=== PATIENT | female | born 1975 | race Caucasian/White ===

== ENCOUNTER 2016-03-24 00:15 | Emergency (ER) | payer OTHER ==
[2016-03-24 00:51] VITALS: BP 148/93
[2016-03-24 01:15] LABS: Basophils % (Auto) 0.3 % (0.0-1.8); Hematocrit 41.5 % (30.3-42.9); Hemoglobin 13.5 gm/dl (10.1-14.3); Mean Corpuscular HGB Conc 33 % (30-34); Mean Corpuscular Hemoglobin 28 pg (28-32); Mean Corpuscular Volume 85 fl (79-97); Platelet Count 179 K/mm3 (140-440); Red Blood Count 4.86 M/mm3 (3.65-5.03); Red Cell Distribution Width 13.8 % (13.2-15.2); White Blood Count 11.2 K/mm3 (4.5-11.0)
[2016-03-24 01:36] LABS: Anion Gap 21 mmol/L; BUN/Creatinine Ratio 16.25; Blood Urea Nitrogen 13 mg/dL (7-17); Calcium 8.7 mg/dL (8.4-10.2); Carbon Dioxide 22 mmol/L (22-30); Chloride 91.4 mmol/L (98-107); Glucose 132 mg/dL (65-100); Potassium 3.8 mmol/L (3.6-5.0); Sodium 131 mmol/L (137-145)
--- NOTE | 2016-03-25 19:09 | ED Elopement Review ---
ED Pt Elopement review - Results review Lab results: Laboratory Tests 03/24/16 03/24/16 01:05 01:05 WBC 11.2 H RBC 4.86 Hgb 13.5 Hct 41.5 MCV 85 MCH 28 MCHC 33 RDW 13.8 Plt Count 179 Lymph % (Auto) 9.2 L Fann[place] % (Auto) 4.3 Eos % (Auto) 1.0 Baso % (Auto) 0.3 Lymph # 1.0 L Fannin # 0.5 Eos # 0.1 Baso # 0.0 Seg Neutrophils % 85.2 H Seg Neutrophils # 9.5 H Sodium 131 L Potassium 3.8 Chloride 91.4 L Carbon Dioxide 22 Anion Gap 21 BUN 13 Creatinine 0.8 Estimated GFR > 60 BUN/Creatinine Ratio 16.25 Glucose 132 H Calcium 8.7 Troponin T < 0.010 - Call Back decision Pt Call Back Decision: Pt to F/U with PMD (for elevated heart rate and mild elevated fever she needs to follow up with her PCP)
== END 2016-03-24 01:06 | disposition left against medical advice (07) ==
LOC: ED 00:15
DX: R50.9 Fever, unspecified (principal); R51 Headache; M54.2 Cervicalgia; I10 Essential (primary) hypertension; Z53.21 Procedure and treatment not carried out due to patient leaving prior to being seen by health care provider
CPT/HCPCS: 36415; 80048; 84484; 85025; 93005; 93010

== ENCOUNTER 2018-03-01 09:59 | Outpatient (CLI) | payer OTHER ==
--- NOTE | 2018-03-02 08:07 | Mammography Report ---
BILATERAL DIGITAL SCREENING MAMMOGRAM with CAD: 03/01/18 09:59:00 CLINICAL: Routine screening. COMPARISON:06/09/15 FINDINGS: The breasts are heterogeneously dense, which may obscure small masses. No mass, architectural distortion or suspicious calcifications. IMPRESSION: No mammographic evidence of malignancy. BI-RADS CATEGORY: 1 - - Negative RECOMMENDATION: Routine mammographic screening in one year. COMMENT: Patient follow-up letters are generated by our [employer] application.
== END 2018-03-01 10:00 | disposition home or self-care (01) ==
LOC: MAMMO 09:59
PROVIDERS: ATTEND Internal Medicine
DX: Z12.31 Encounter for screening mammogram for malignant neoplasm of breast (principal); I10 Essential (primary) hypertension
CPT/HCPCS: 77067

== ENCOUNTER 2018-05-11 10:06 | Outpatient (CLI) | payer OTHER ==
[2018-05-11 11:57] LABS: Basophils % (Auto) 0.6 % (0.0-1.8); Eosinophils # (Auto) 0.6 K/mm3 (0.0-0.4); Eosinophils % (Auto) 10.5 % (0.0-4.3); Hematocrit 41.3 % (30.3-42.9); Hemoglobin 14.2 gm/dl (10.1-14.3); Lymphocytes # (Auto) 1.2 K/mm3 (1.2-5.4); Lymphocytes % (Auto) 22.5 % (13.4-35.0); Mean Corpuscular HGB Conc 34 % (30-34); Mean Corpuscular Hemoglobin 30 pg (28-32); Mean Corpuscular Volume 87 fl (79-97); Monocytes # (Auto) 0.5 K/mm3 (0.0-0.8); Monocytes % (Auto) 9.5 % (0.0-7.3); Platelet Count 184 K/mm3 (140-440); Red Blood Count 4.75 M/mm3 (3.65-5.03); Red Cell Distribution Width 14.3 % (13.2-15.2)
[2018-05-11 12:07] LABS: Alanine Aminotransferase 26 units/L (7-56); Albumin 4.1 g/dL (3.9-5); BUN/Creatinine Ratio 15; Blood Urea Nitrogen 9 mg/dL (7-17); Calcium 8.8 mg/dL (8.4-10.2); Chol/HDL Ratio 3.86 %; HDL Cholesterol 37 mg/dL (40-59); Hemolysis Index 4; LDL Cholesterol,Direct 86 mg/dL (50-130)
[2018-05-11 12:43] LABS: Hepatitis A Antibody IgM Non-Reactive (NonReactive); Hepatitis B Core IgM Non-Reactive (NonReactive); Hepatitis B Surface Antigen Non-Reactive (Negative); Hepatitis C Virus Antibody Non-Reactive (NonReactive)
== END 2018-05-11 10:07 | disposition home or self-care (01) ==
LOC: LAB 10:06
PROVIDERS: ATTEND Internal Medicine
DX: Z00.01 Encounter for general adult medical examination with abnormal findings (principal); E66.09 Other obesity due to excess calories; I10 Essential (primary) hypertension; E78.1 Pure hyperglyceridemia
CPT/HCPCS: 36415; 80053; 80061; 80074; 82306; 82607; 83036; 85025; 86592

== ENCOUNTER 2018-09-27 09:00 | Outpatient (CLI) | payer OTHER ==
[2018-10-01 18:09] LABS: Vitamin D, 25-OH, D2 34 ng/mL
== END 2018-09-27 09:01 | disposition home or self-care (01) ==
LOC: LAB 09:00
PROVIDERS: ATTEND Internal Medicine
DX: E55.9 Vitamin D deficiency, unspecified (principal); R73.03 Prediabetes; I10 Essential (primary) hypertension
CPT/HCPCS: 36415; 82306; 83036

== ENCOUNTER 2018-11-28 11:14 | Outpatient (CLI) | payer OTHER ==
[2018-11-28 12:02] LABS: Bacteria,Urine 1+ /HPF (Negative); Bilirubin,Urine NEG (Negative); Blood,Urine SM (Negative); Color,Urine Yellow (Yellow); Mucus,Urine 1+ /HPF; Protein,Urine <15 mg/dL mg/dL (Negative); Urobilinogen,Urine < 2.0 mg/dL (<2.0)
== END 2018-11-28 11:15 | disposition home or self-care (01) ==
LOC: LAB 11:14
PROVIDERS: ATTEND Internal Medicine
DX: N39.0 Urinary tract infection, site not specified (principal)
CPT/HCPCS: 81001

== ENCOUNTER 2020-09-08 09:56 | Outpatient (CLI) | payer BC ==
[2020-09-08 10:27] LABS: Basophils % (Auto) 0.4 % (0.0-1.8); Eosinophils # (Auto) 0.7 K/mm3 (0.0-0.4); Eosinophils % (Auto) 10.4 % (0.0-4.3); Hematocrit 37.8 % (30.3-42.9); Hemoglobin 12.9 gm/dl (10.1-14.3); Lymphocytes # (Auto) 1.9 K/mm3 (1.2-5.4); Lymphocytes % (Auto) 29.6 % (13.4-35.0); Mean Corpuscular HGB Conc 34 % (30-34); Mean Corpuscular Volume 87 fl (79-97); Monocytes # (Auto) 0.4 K/mm3 (0.0-0.8); Monocytes % (Auto) 6.7 % (0.0-7.3); Platelet Count 152 K/mm3 (140-440); Red Blood Count 4.35 M/mm3 (3.65-5.03); Red Cell Distribution Width 14.3 % (13.2-15.2)
[2020-09-08 10:44] LABS: Blood Urea Nitrogen 14 mg/dL (7-17); Calcium 9.1 mg/dL (8.4-10.2); Hemolysis Index 3
[2020-09-08 10:53] LABS: BUN/Creatinine Ratio 28
[2020-09-08 11:10] LABS: Alanine Aminotransferase 15 units/L (7-56); Albumin 4.1 g/dL (3.9-5); Chol/HDL Ratio 2.84 %; HDL Cholesterol 51 mg/dL (40-59); LDL Cholesterol,Direct 95 mg/dL (50-130)
[2020-09-12 12:32] LABS: Vitamin D, 25-OH, D2 <4 ng/mL
== END 2020-09-08 09:57 | disposition home or self-care (01) ==
LOC: LAB 09:56
PROVIDERS: ATTEND Internal Medicine
DX: Z13.220 Encounter for screening for lipoid disorders (principal); Z13.29 Encounter for screening for other suspected endocrine disorder; Z00.00 Encounter for general adult medical examination without abnormal findings; R73.9 Hyperglycemia, unspecified; E55.9 Vitamin D deficiency, unspecified; R20.2 Paresthesia of skin; I10 Essential (primary) hypertension
CPT/HCPCS: 36415; 80053; 80061; 82306; 82607; 83036; 84443; 85025

== ENCOUNTER 2021-09-16 09:09 | Outpatient (CLI) | payer BC ==
[2021-09-16 12:31] LABS: Basophils % (Auto) 0.5 % (0.0-1.8); Eosinophils # (Auto) 0.7 K/mm3 (0.0-0.4); Eosinophils % (Auto) 10.5 % (0.0-4.3); Hematocrit 38.8 % (30.3-42.9); Hemoglobin 13.1 gm/dl (10.1-14.3); Lymphocytes # (Auto) 1.7 K/mm3 (1.2-5.4); Lymphocytes % (Auto) 26.9 % (13.4-35.0); Mean Corpuscular HGB Conc 34 % (30-34); Mean Corpuscular Volume 89 fl (79-97); Monocytes # (Auto) 0.4 K/mm3 (0.0-0.8); Monocytes % (Auto) 6.9 % (0.0-7.3); Platelet Count 154 K/mm3 (140-440); Red Blood Count 4.36 M/mm3 (3.65-5.03); Red Cell Distribution Width 13.4 % (13.2-15.2)
[2021-09-16 12:40] LABS: Chol/HDL Ratio 3.92 %
== END 2021-09-16 09:10 | disposition home or self-care (01) ==
LOC: LABHHL 09:09
PROVIDERS: ATTEND Internal Medicine
DX: Z00.00 Encounter for general adult medical examination without abnormal findings (principal); I10 Essential (primary) hypertension; R73.9 Hyperglycemia, unspecified; E55.9 Vitamin D deficiency, unspecified; R53.83 Other fatigue
CPT/HCPCS: 36415; 80061; 82306; 83036; 84443; 85025